=== PATIENT | female | born 1980 | race Caucasian/White ===

== ENCOUNTER → 2023-12-27 11:00 | Outpatient (BNVA) | payer MEDICARE, MEDICAID, SELFPAY | PROVIDERS: Family Provider Family Medicine; PCP Family Medicine; Visit Provider Family Medicine | DX: Z13.1 Encounter for screening for diabetes mellitus (principal); Z13.6 Encounter for screening for cardiovascular disorders; Z51.81 Encounter for therapeutic drug level monitoring | CPT/HCPCS: 80053; 80061; 85025 ==

== ENCOUNTER → 2024-07-11 10:20 | Outpatient (BNVA) | payer MEDICARE, MEDICAID, SELFPAY | PROVIDERS: Family Provider Family Medicine; PCP Family Medicine; Visit Provider Family Medicine | DX: R33.9 Retention of urine, unspecified (principal) | CPT/HCPCS: 81000; 87086 ==